=== PATIENT | female | born 1985 | race Two or more races ===

== ENCOUNTER 2016-08-28 03:25 | Emergency (ER) | payer SELFPAY ==
[~2016-08-28] VITALS: Ht 157.5 cm; Wt 59.0 kg
[2016-08-28] MEDS ORDERED: HYDROCODONE/APAP 5/325MG 1 EACH TABLET ONE (04:28)
[2016-08-28] MEDS ORDERED: HYDROCODONE/APAP 5/325MG 1 EACH TABLET PO ONE (04:30)
[2016-08-28] MEDS ORDERED: ACETAMINOPHEN ES 500 MG TABLET ONE (04:40)
[2016-08-28] MEDS ORDERED: ACETAMINOPHEN 325 MG TABLET PO ONE (05:00)
[2016-08-28 05:52] VITALS: BP 140/63
== END 2016-08-28 05:53 | disposition home or self-care (01) ==
LOC: ER 03:32
DX: M23.92 Unspecified internal derangement of left knee (principal)
CPT/HCPCS: 29505; 73564; 84703; 99284; A4606; Z7610

== ENCOUNTER 2016-08-29 16:38 | Emergency (ER) | payer SELFPAY ==
[~2016-08-29] VITALS: Ht 157.5 cm; Wt 59.0 kg
[2016-08-29 16:55] VITALS: BP 115/64
[2016-08-29] MEDS ORDERED: IBUPROFEN 600 MG TABLET PO ONE ×2 (17:44→18:00)
== END 2016-08-29 17:47 | disposition home or self-care (01) ==
LOC: ER 16:40
DX: S89.92XA Unspecified injury of left lower leg, initial encounter (principal); X58.XXXA Exposure to other specified factors, initial encounter; Y93.89 Activity, other specified; Y92.89 Other specified places as the place of occurrence of the external cause; Y99.8 Other external cause status
CPT/HCPCS: A4606; Z7610

== ENCOUNTER 2020-08-20 16:30 | Emergency (ER) | payer MEDICAID, OTHER ==
[~2020-08-20] VITALS: Ht 165.1 cm; Wt 70.8 kg
[2020-08-20] MEDS ORDERED: ACETAMINOPHEN ES 500 MG TABLET ONE (17:28)
[2020-08-20] MEDS ORDERED: ONDANSETRON 4 MG TAB.RAPDIS ONE (17:28)
[2020-08-20] MEDS ORDERED: ONDANSETRON 4 MG TAB.RAPDIS PO ONE (17:30)
[2020-08-20] MEDS ORDERED: IV NS 0.9% 1,000 ML BAG IV ONE (17:30)
[2020-08-20] MEDS ORDERED: ACETAMINOPHEN 325 MG TABLET PO ONE (17:30)
[2020-08-20 18:57] VITALS: BP 126/81
== END 2020-08-20 18:58 | disposition home or self-care (01) ==
LOC: ER 16:40
DX: U07.1 COVID-19 (principal); J12.89 Other viral pneumonia; R11.2 Nausea with vomiting, unspecified
CPT/HCPCS: 71045; 99283; Q0162